=== PATIENT | male | born 1975 | race Caucasian/White ===

== ENCOUNTER 2025-04-15 20:59 | Outpatient (OUT) | payer OTHER, SELFPAY | END 2025-04-15 21:00 | disposition home or self-care (01) | LOC: SLEEP 20:59 | PROVIDERS: PCP Family Medicine; Visit Provider Family Medicine | DX: G47.33 Obstructive sleep apnea (adult) (pediatric) (principal) | CPT/HCPCS: 95810 ==

== ENCOUNTER 2025-04-28 20:58 | Outpatient (OUT) | payer OTHER, SELFPAY ==
--- OUTSIDE RECORDS SUMMARY | 2024-09-13 11:00 | XMS_ITS | Encounter Summary ---
Author Name [facility] [place] [facility] Address [address] [place] [address] Care Team Providers Care Boiler House Supervisor Name Role Phone JUAN MIGUEL AJ Primary Care Provider Unavailabl e Insurance Providers: All historical and current Section Date Range: From patient's date of to the date document was created. This section includes the names of all active insurance providers for the patient. Insurance Provider Type of Coverage Plan Name Start of Policy Coverage End of Policy Coverage Group Number Member ID Insurance Provider's Telephone Number Policy Haney's Name Patient's Relationship to Policy Haney MONICA PREFERRED PROVIDER ORGANIZAT ION (PPO) [employer] Jun 27, 2018 [id number] EVA PELAEZ PATIENT [employer] ([id number]) PRESCRIPT ION ENVOY 2017 ENVOYRX [phone] EVA PELAEZ PATIENT [facility] PREFERRED PROVIDER ORGANIZAT ION (PPO) [employer]ER [facility] Nov 27, 2023 [id number] EVA PELAEZ PATIENT Selected Encounter This section includes the information on record at [place] for the Encounter. Date/Time Encounter Type Encounter Description Reason Provider Source Sep 13, 2024 03:00 PM OFFICE O/P EST MOD 30 MIN PRIMARY CARE/MEDICINE ICD-10-CM G43.E09 Chronic migraine with aura, not ntrct, without stat migr JUAN MIGUEL AJ IHE Encounter Template Text not used by [facility] Assessments - Encounter Diagnoses This section includes the primary and secondary diagnoses documented for the Encounter. Date/Time Primary/Secondary Diagnosis Diagnosis Name Provider Source Oct 06, 2024 01:02 PM PRIMARY Chronic migraine with aura, not ntrct, without stat migr [facility] Oct 06, 2024 01:02 PM SECONDARY Hyperlipidemia, unspecified CHRISSIE [facility] Oct 06, 2024 01:02 PM SECONDARY Post-traumatic stress disorder, unspecified DE EBER,JUAN MIGUEL [facility] Lab Results: +/- 30 days of the encounter This section includes the Chemistry and Hematology Lab Results on record with [facility] for the patient. Radiology Reports and Pathology Reports are provided separately, in subsequent sections. Lab Results This section contains the Chemistry/Hematology Results that were resulted 30 days before or 30 daysafter the date of the Encounter. Date/Time Source Result Type Result - Unit Interpretation Reference Range Specimen Type Comment Sep 06, 2024 10:45 AM [facility] PROSTATE SPECIFIC ANTIGEN SERUM Specimen Type : SERUM No comment entered. Ordering Provider: JUAN MIGUEL AJ Report Released Date/Time: Aug 21, 2024 09:13 PM Reporting Lab: [address] [id number] Performing Lab: [address] [phone] PROSTATE SPECIFIC ANTIGEN 1.17 ng/mL <4. 00 Sep 06, 2024 10:45 AM [facility] LIPID PROFILE PLASMA Specimen Type: PLASMA Comment: DLDLREF RANGE: NEAR OR ABOVE OPTIMAL: 100-129 mg/dL BORDERLINE DLDLHIGH: 130-159 mg/dL HIGH: 160-189 mg/dL VERY HIGH: >=190 TRIG REF RANGE: BORDERLINE HIGH: 150-199 mg/dL HIGH: 200-499 mg/dL TRIG VERY HIGH: >=500 mg/dL CREA eGFR was calculated using the CKD-EPI 2020 equation. CHOL REF RANGE: BORDERLINE HIGH: 200-239 mg/dL HIGH: >=240 mg/dL Ordering Provider: JUAN MIGUEL AJ Report Released Date/Time: Aug 21, 2024 09:13 PM Reporting Lab: [address] [address] Performing Lab: [address] [address] CHOLESTEROL 233 mg/dL H <199 LDL CHOLESTEROL 169 mg/dL H <99 HDL CHOLESTEROL 54 mg/dL L >60 TRIGLYCERIDE 98 mg/dL <149 Sep 06, 2024 10:45 AM [facility] COMPREHENSIVE METABOLIC PANEL PLASMA S pecimen Type: PLASMA Comment: DLDLREF RANGE: NEAR OR ABOVE OPTIMAL: 100-129 mg/dL BORDERLINE DLDLHIGH: 130-159 mg/dL HIGH: 160-189 mg/dL VERY HIGH: >=190 TRIG REF RANGE: BORDERLINE HIGH: 150-199 mg/dL HIGH: 200-499 mg/dL TRIG VERY HIGH: >=500 mg/dL CREA eGFR was calculated using the CKD-EPI 2020 equation. CHOL REF RANGE: BORDERLINE HIGH: 200-239 mg/dL HIGH: >=240 mg/dL Ordering Provider: JUAN MIGUEL AJ Report Released Date/Time: Aug 21, 2024 09:13 PM Reporting Lab: [address] [address] Performing Lab: [address] [address] ALBUMIN 4.7 g/dL 3.5-5.2 ALKALINE PHOSPHATASE 54 U/L 40-150 ALT/SGPT 50 U/L <55 AST/SGOT 36 U/L H 5-34 BUN 8 mg/dL L 8.9-20.6 CALCIUM 9.7 mg/dL 8.4-10.2 CREATININE 1.1 mg/dL 0.72-1.25 CO2 23 mmol/L 22-29 GLUCOSE 109 mg/dL H 74-100 PROTEIN, TOTAL 7.3 g/dL 6.4-8.3 SODIUM 140 mmol/L 136-145 CHLORIDE 109 mmol/L H 98-107 BILIRUBIN, TOTAL 0.5 mg/dL 0.2-1.2 POTASSIUM 4.7 mmol/L 3.5-5.1 ANION GAP 13.0 mmol/L 10-20 EGFR (CALCULATED) 82.0 mL/min Sep 06, 2024 10:45 AM [facility] CBC BLOOD Specimen Type: BLOOD No comment entered. Ordering Provider: JUAN MIGUEL AJ Report Released Date/Time: Aug 21, 2024 09:13 PM Reporting Lab: [address] [address] Performing Lab: [address] [phone] WBC COUNT 6.7 10*3/uL 3.6-11.0 RBC COUNT 5.13 10*6/uL 4.47-5.83 HGB 15.1 g/dL 13.6-17.4 HCT 45.7 40.0-51.0 MCV 89.1 fL 80.0-96.0 MCH 29.4 pg 27.0-31.0 MCHC 33.0 g/dL 31.5-36.5 PLT 261 10*3/uL 150-400 LYMPHS % 37.3 21.0-51.0 MONOCYTES % 7.6 4.0-8.0 NUCLEATED RBC/100WBC 0.3 /100{WBCs} RDW 13.7 11.2-15.8 NEUTROPHIL % 53.4 L 54.0-78.0 EOSINOPHIL % 0.9 0.0-3.0 BASOPHIL % 0.8 0.0-3.0 ABSOLUTE LYMPHOCYTE COUNT 2.5 10*3/uL 0. 8-5.0 ABSOLUTE NEUTROPHIL COUNT 3.6 10*3/uL 1. 9-8.6 ABSOLUTE BASOPHIL COUNT 0.1 10*3/uL 0.0- 0.3 ABSOLUTE MONOCYTE COUNT 0.5 10*3/uL 0.1- 0.9 ABSOLUTE EOSINOPHIL COUNT 0.1 10*3/uL 0. 0-0.3 MPV 8.7 fL 7.4-11.4 Sep 06, 2024 10:45 AM [facility] MAGNESIUM PLASMA Specimen Type: PLASMA Comment: DLDLREF RANGE: NEAR OR ABOVE OPTIMAL: 100-129 mg/dL BORDERLINE DLDLHIGH: 130-159 mg/dL HIGH: 160-189 mg/dL VERY HIGH: >=190 TRIG REF RANGE: BORDERLINE HIGH: 150-199 mg/dL HIGH: 200-499 mg/dL TRIG VERY HIGH: >=500 mg/dL CREA eGFR was calculated using the CKD-EPI 2020 equation. CHOL REF RANGE: BORDERLINE HIGH: 200-239 mg/dL HIGH: >=240 mg/dL Ordering Provider: JUAN MIGUEL AJ Report Released Date/Time: Aug 21, 2024 09:13 PM Reporting Lab: [address] [address] Performing Lab: [place] [phone] MAGNESIUM 2.2 mg/dL 1.6-2.6 Sep 06, 2024 10:45 AM [facility] URINALYSIS URINE Specimen Type: URINE No comment entered. Ordering Provider: JUAN MIGUEL AJ Report Released Date/Time: Aug 21, 2024 09:13 PM Reporting Lab: [place] [phone] Performing Lab: [place] [phone] SPECIFIC GRAVITY 1.004 L 1.016-1.022 URINE GLUCOSE Negative mg/dL Negative URINE PROTEIN Negative mg/dL Negative URINE PH 7.0 5.0-8.0 NITRITE, URINE Negative Negative ESTERASE(WBC) Negative Negative URINE CLARITY Clear Clear URINE BILIRUBIN Negative mg/dL <=0.4 URINE BLOOD Negative mg/dL <0.05 UROBILINOGEN Negative mg/dL <=1 URINE KETONES Negative mg/dL <=9 URINE COLOR Colorless [none] Sep 06, 2024 10:45 AM [facility] VITAMIN D (TOTAL) SERUM Specimen Type : SERUM No comment entered. Ordering Provider: JUAN MIGUEL AJ Report Released Date/Time: Aug 21, 2024 09:13 PM Reporting Lab: [address] [phone] Performing Lab: [address] [phone] VITAMIN D (TOTAL) 44.00 ng/mL 30.00-75.0 0 Sep 06, 2024 10:45 AM [facility] TSH PLASMA Specimen Type: PLASMA Comment: DLDLREF RANGE: NEAR OR ABOVE OPTIMAL: 100-129 mg/dL BORDERLINE DLDLHIGH: 130-159 mg/dL HIGH: 160-189 mg/dL VERY HIGH: >=190 TRIG REF RANGE: BORDERLINE HIGH: 150-199 mg/dL HIGH: 200-499 mg/dL TRIG VERY HIGH: >=500 mg/dL CREA eGFR was calculated using the CKD-EPI 2020 equation. CHOL REF RANGE: BORDERLINE HIGH: 200-239 mg/dL HIGH: >=240 mg/dL Ordering Provider: JUAN MIGUEL JA Report Released Date/Time: Aug 21, 2024 09:13 PM Reporting Lab: [place] [address] [facility] [address] Performing Lab: [facility] [address] [facility] [address] TSH 1.970 u[IU]/mL 0.360-4.500 Social History: Smoking Status (Most current) and Tobacco Use (All prior to encounter date) This section includes the most current, and the historical, smoking and tobacco- related health factors from the [place] facility where the Encounter took place. Current Smoking Status This section includes the most current smoking, or tobacco-related health factor, from the [place] facility where the Encounter took place. Date/Time Current Smoking Status Comment Facil ity Sep 13, 2024 03:00 PM [facility]-TOBACCO FORMER USER [facility] Tobacco Use History This section includes a history of the smoking, or tobacco-related health factors, that were collected on or before the date of the Encounter. The data comes from the [place] facility where the Encounter took place. 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 [facility] Jul 28, 2022 02:00 PM VA-TOBACCO USE MED NO [facility] Jul 28, 2022 02:00 PM VA-TOBACCO USER SOME DAYS [facility] Jul 02, 2021 01:00 PM VA-TOBACCO DOESNT USE WI 30 MIN WAKEUP [facility] Jul 02, 2021 01:00 PM VA-TOBACCO USE 30 YEARS OR MORE [facility] Jul 02, 2021 01:00 PM VA-TOBACCO USE ADVICE [facility] Jul 02, 2021 01:00 PM 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 Date/Time Encounter Note(s) Provider Source Sep 13, 2024 02:54 PM INTERNAL MEDICINE OUTPATIENT NOTE: LOCAL TITLE: PRIMARY CARE OUTPATIENT NOTE (T) STANDARD TITLE: INTERNAL MEDICINE OUTPATIENT NOTE DATE OF NOTE: SEP 13, 2024@14:54 ENTRY DATE: SEP 13, 2024@14:54:37 AUTHOR: JUAN MIGUEL AJ COSIGNER: URGENCY: STATUS: COMPLETED In-person Note 48yo Reason for Visit: HERE FOR SCHEDULED APPOINTMENT TO GO OVER HIS LABS AND TO DISCUSS HIS MIGRAINES - WILL GET ABOUT 2 A MONTH- AND HIS HYPOTHRYOIDISM REVIEW OF SYSTEMS: GI: DENIES ABDOMINAL PAIN ,GERD, CONSTIPATION,DIARRHEA ,RECTAL BLEEDING : DENIES DYSURIA OR HEMATURIA CARDIAC; DENIES CHEST PAIN,PALPATATIONS ,ORTHOPNEA OR PEDAL EDEMA RESPIRATORY:DENIES SOB- CHRONIC COUGH -OR WHEEZING NEURO: DENIES HEADACHE, PARESTHESIA, NEUROPATHY,VISUAL OR HEARING PROBLEMS HABITS; TOBACCO;QUIT SMOKELESS TOBACCO 3 YEARS AGO ETOH; 8 BEERS - 4 DAYS A WEEK OTHER SUBSTANCES NEG PATIENT ALLERGIES DETAILED ALLERGIES/ADVERSE REACTIONS No Known Allergies AMRS - MEDS (REC SUCCINCT) Active and Recently Inpatient, Outpatient and Clinic Medications (including Supplies): Active Outpatient Medications Status ======= 1) LEVOTHYROXINE NA (SYNTHROID) 50MCG TAB TAKE ONE ACTIVE TABLET BY MOUTH EVERY MORNING, ON AN EMPTY STOMACH 30-60 MINUTES BEFORE BREAKFAST 2) MOMETASONE 200MCG/ACTUAT 120D ORAL INHL INHALE 1 PUFF ACTIVE BY MOUTH EVERY DAY FOR ASTHMA (RINSE MOUTH AFTER USE:NEW INHALER MUST BE PRIMED BEFORE USE OR IF NOT USED FOR 5 DAYS) 3) SUMATRIPTAN SUCCINATE 100MG TAB TAKE ONE TABLET BY ACTIVE MOUTH ONE TIME NEEDED FOR MIGRAINE HEADACHE MAY REPEAT AFTER 2 HOURS (NO MORE THAN 200MG IN 24 HOURS) Inactive Outpatient Medications Status ======= 1) FLUTICASONE PROP 50MCG 120D NASAL INHL USE 2 SPRAYS IN EACH NOSTRIL EVERY DAY FOR ALLERGIC RHINITIS 2) LORATADINE 10MG TAB TAKE ONE TABLET BY MOUTH EVERY DAY FOR ALLERGIC RHINITIS Active Non-VA Medications Status ======= 1) Non-VA ESSENTIAL FATTY ACIDS CAP 1000MG MOUTH EVERY ACTIVE DAY 2) Non-VA TESTOSTERONE BOOSTER CAP/TAB 3 CAPS MOUTH ACTIVE TWICE A DAY 7 Total Medications PHYSICAL EXAM: Vital Signs: T: 98.4 F [36.9 C] (09/13/2024 14:42) P: 83 (09/13/2024 14:42) R: 20 (09/13/2024 14:42) BP: 126/81 (09/13/2024 14:42) Pain: 6 (09/13/2024 14:51) Height: 73 in [185.4 cm] (11/30/2023 12:39) Weight: 270 lb [122.47 kg] (09/13/2024 14:42) Pulse Ox: 97% (09/13/2024 14:42) GENERAL: ALERT- ORIENTED X 4- NO DISTRESS LABS: REVIEWED WITH THE PATIENT: GLUCOSE 109- CHOL 233- WITH LDL OF 169 - REST OK HEAD, EARS ,EYES,NOSE AND THROAT- NORMOCEPHALIC ,LETICIA,EOMI, ENT NEG NECK: SUPPLE WITHOUT MASSES OR BRUITS CHEST/LUNG: CHEST SYMETRICAL- LUNGS CLEAR CARDIOVASCULAR : HEART RRR WITHOUT MURMUR GASTROINTESTINAL: ABDOMEN SOFT WITHOUT MASSES OR BRUITS EXTREMITIES; NO EDEMA NEURO: CN II-XII GROSSLY INTACT - NO TREMORS OR ABNORMAL MOVEMENTS ASSESSMENT/PLAN: HYPOTHYROIDISM MIGRAINES ETOH EXCESS - ADVISED TO CURTAIL ETOH - HE DECLINED HELP HYPERLIPIDEMIA - DECLINED STATINS FOR NOW HEALTH MAINTENANCE/CLINICAL REMINDERS: Clinical Reminders Activity Influenza Immunization: Deferral / Refusal The patient declines to receive the recommended dose of seasonal influenza vaccine. Immunization: INFLUENZA, UNSPECIFIED FORMULATION Refusal Reason: PATIENT DECISION Patient refuses all immunization(s) in the FLU group Date Documented: 09/13/24 15:39 Clinical Reminders Activity Follow-up Pos Alcohol : Patient's AUDIT-C score was greater than or equal to 5; brief alcohol intervention is indicated. Shared concern that the patient may be drinking at unhealthy levels known to increase his/her risk of alcohol related health problems. Specifically the following were reviewed: High blood pressure, heart disease, liver disease, depression The patient was advised/informed to drink within safe limits, which are no more than 2 drinks per day on average and no more than 4 drinks on any one day AND no more than 14 drinks per week. Will discuss again at next visit. The patient declines referral for alcohol use assessment or treatment at this time. Plan: rescreen annually. MEDICATION RECONCILIATION Medication Reconciliation report reviewed and discussed with patient/caregiver. VA prescription medications, non-VA prescription medications, OTC and herbal medications reviewed: Patient/caregiver verifies that the list is complete and accurate and voices understanding. Patient/caregiver in possession of printed medication list. FOLLOW-UP: RTC IN 6 MONTHS WITH LABS I am the Attending Physician. TOTAL TIME SPENT: Spent 30 minutes in care of this patient today including review of records, exam, and placing orders. /jennifer/ JUAN MIGUEL JA PHYSICIAN Signed: 09/13/2024 15:41 JUAN MIGUEL AJ [facility] Sep 13, 2024 02:44 PM PRIMARY CARE NURSI TOI NOTE: LOCAL TITLE: OUTPATIENT NURSING INTAKE NOTE (T) STANDARD TITLE: PRIMARY CARE NURSING NOTE DATE OF NOTE: SEP 13, 2024@14:44 ENTRY DATE: SEP 13, 2024@14:44:24 AUTHOR: AZIZA MALDONADO COSIGNER: URGENCY: STATUS: COMPLETED Hemoglobin A1C Results: No Hemoglobin A1C Results Review Allergies Allergies reviewed and updated per protocol. ALLERGIES/ADVERSE REACTIONS No Known Allergies MEDICATION LIST REVIEW REPORT OTC/Herbal was documented at this visit. 1. Has the patient been feeling sad or distressed? No 2. Has the patient been having personal or family problems? No 3. Has the patient been experiencing worry and/or stress? No 4. Has the patient been having problems with drugs and/or alcohol? No 5. [place] [facility] pocket card was provided to patient. No/patient declined Whole Health MAP ('s [place], [employer] and [employer]) What matters most to you? Comment: FAMILY Clinical Reminders Activity Advance Directive Education Screen: Patient received information regarding Advance Directives: No - Patient declined information at this time. WILL GET COPY Alcohol Use Screen (AUDIT-C): Alcohol Screen: SCREEN FOR ALCOHOL (AUDIT-C) An alcohol screening test (AUDIT-C) was positive (score=11). 1. How often did you have a drink containing alcohol in the past year? Consider a drink to be a 12 ounce can or bottle of regular beer, 8 ounces of malt liquor, a 5 ounce glass of table wine, or a 1.5 ounce shot of liquor (like scotch, gin, or vodka). Four or more times a week 2. How many drinks containing alcohol did you have on a typical day when you were drinking in the past year? Seven to nine drinks 3. How often did you have six or more drinks on one occasion in the past year? Daily or almost daily Licensed Independent Provider notified of positive screen and need for follow-up. Name of provider notified: Joy BMI Screening: At this visit, the health risks of obesity were reviewed and discussed with the patient, and the benefits of a weight management treatment program, such as [facility] was discussed and offered to the patient. Patient declines referral. After discussing the health risks of obesity and offering a referral to [facility] or another weight loss program outside the [facility], the patient DECLINES REFERRAL to [facility] or other weight loss program at this time. COVID-19 Immunization: Refused Pfizer Monovalent COVID-19 vaccine Immunization: COVID-19 (PFIZER), MRNA, LNP-S, PF, FAVIOLA-SUCROSE, 30 MCG/0.3 ML (AGES 12+ YEARS) Refusal Reason: PATIENT DECISION Patient refuses all immunization(s) in the COVID-19 group Comment: don't want it Date Documented: 09/13/24 14:48 Depression Screening: Perform PHQ-2 A PHQ-2 screen was performed. The score was 0 which is a negative screen for depression. Over the past two weeks, how often have you been bothered by the following problems? 1. Little interest or pleasure in doing things Not at all 2. Feeling down, depressed, or hopeless Not at all Influenza Immunization: Deferral / Refusal The patient declines to receive the recommended dose of seasonal influenza vaccine. Immunization: INFLUENZA, UNSPECIFIED FORMULATION Refusal Reason: PATIENT DECISION Patient refuses all immunization(s) in the FLU group Date Documented: 09/13/24 14:49 Pain, Brief Evaluation: Type of pain: Ongoing Location: Neck rt shoulders into scapula, rt ankle Intensity: Currently: 6 Usually: 6 Description of Pain: Aching Sharp Evaluation: Pain will be evaluated by provider today. Notified via Verbal Communication. Patient Education Documentation: LEARNING NEEDS ASSESSMENT: The patient/family/significant other reports no changes in learning needs. Pneumococcal Conjugate Vaccine (PCV15/PCV20): Refuses PCV vaccine Immunization: PNEUMOCOCCAL CONJUGATE, UNSPECIFIED FORMULATION Refusal Reason: PATIENT DECISION Patient refuses all immunization(s) in the PneumoPCV group Date Documented: 09/13/24 14:52 Suicide Screen: C-SSRS Screening [place] Suicide Severity Rating Scale (C-SSRS) screener 1. Over the past month, have you wished you were or wished you could go to sleep and not wake up? No 2. Over the past month, have you had any actual thoughts of killing yourself? No 3. Over the past month, have you been thinking about how you might do this? Response not required due to responses to other questions. 4. Over the past month, have you had these thoughts and had some intention of acting on them? Response not required due to responses to other questions. 5. Over the past month, have you started to work out or worked out the details of how to kill yourself? Response not required due to responses to other questions. 6. If yes, at any time in the past month did you intend to carry out this plan? Response not required due to responses to other questions. 7. In your lifetime, have you ever done anything, started to do anything, or prepared to do anything to end your life (for example, collected pills, obtained a gun, gave away valuables, went to the roof but didn't jump)? No 8. If YES, was this within the past 3 months? Response not required due to responses to other questions. Tobacco Use Screening: The patient is a former tobacco user. The patient quit one to less than 5 years ago. /jennifer/ AZIZA MALDONADO LICENSED PRACTICAL NURSE Signed: 09/13/2024 14:53 AZIZA MALDONADO [facility]
--- OUTSIDE RECORDS SUMMARY | 2025-04-16 08:48 | XMS_ITS | Encounter Summary ---
Author Name [facility] [place] [facility] Address [address] [place] [address] Care Team Providers Care Automotive Service Management Teacher Name Role Phone JUAN MIGUEL AJ Primary [...] [employer] Jun 27, 2018 [id number] EVA PELAEZ PATIENT [employer] ([id number]) PRESCRIPT ION ENVOY 2017 ENVOYRX [id number] [phone] EVA PELAEZ PATIENT [facility] PREFERRED PROVIDER ORGANIZAT ION (PPO) [employer] MECHANIC APPRENTICE [facility] Nov 27, 2023 [id number] [phone] EVA PELAEZ PATIENT Selected Encounter This section includes the information on record at [place] for the Encounter. Date/Time Encounter Type Encounter Description Reason Provider Source April 16, 2025 12:48 PM Outpatient Encounter PRIMARY CARE/MEDICINE KHUSHBU BELLAMY IHE Encounter Template Text not used by [place] Plan of Treatment: Future Appointments (+ 6 months) and Future Tests (+/- 45 days) The Plan of Treatment section includes future care activities for the [facility] [place] [facility] This section includes future appointments and future orders which are active, pending or scheduled. Future Appointments This section includes appointments that were scheduled to occur 6 months from the date of the Encounter, up to a maximum of 20 appointments. The data comes from all [facility] facilities. Appointment Date/Time Appointment Type Appointme nt Facility Name Apr 28, 2025 08:00 AM AMBULATORY - NONE [facility] May 20, 2025 10:00 AM AMBULATORY - NONE [facility] Encounter Notes: All associated encounter notes This section contains the clinical notes associated to the Encounter. Date/Time Encounter Note(s) Provider Source April 16, 2025 12:48 PM PRIMARY CARE [employer] MESSAGING: LOCAL TITLE: PRIMARY CARE SECURE MESSAGING STANDARD TITLE: PRIMARY CARE SECURE MESSAGING DATE OF NOTE: APRIL 16, 2025@12:48 ENTRY DATE: APRIL 16, 2025@12:48:57 AUTHOR: KHUSHBU BELLAMY EXP COSIGNER: URGENCY: STATUS: COMPLETED PRIMARY CARE SECURE MESSAGING Has ADDENDA ------Original Message Sent: 04/16/2025 07:59 AM ET From: EVA LEACH To: [facility] [address] Subject: Test:Sleep study Good morning. I completed my initial sleep study last night and wondering who the results will go to? I understand the results may take a week to receive, but wanted to keep things going forward. With me transferring care to a different provider there, and I haven't been seen for the initial assessment as of yet being a new patient. I want to ensure that the results and progress doesn't get lost in the transition. Or get delayed due to the transition. Please let me know how and who it is appropriate to direct these questions. Thank you ------Original Message Sent: 04/16/2025 09:46 AM ET From: KHUSHBU BELLAMY To: EVA LEACH Subject: Test:Sleep study Good Morning, Were you able to complete the sleep study at [facility]? ------Original Message Sent: 04/16/2025 12:26 PM ET From: EVA LEACH To: [facility] 1 [facility]OW Subject: Test:Sleep study I completed the sleep study at the [facility], that is correct. Please refer to my initial email regarding questions about the details. ------Original Message Sent: 04/16/2025 12:48 PM ET From: KHUSHBU BELLAMY To: EVA LEACH Subject: Test:Sleep study I reached out to [facility] inquiring if they received the results. [facility] encouraged the clinic to call back on Monday for possible results. Sometimes the results are back right away and sometimes up to the week that you spoke of. [facility] reports that once results and recommendations are received, the PCP is responsible for consulting appropriate equipment. In that case, Dr. Burns will be responsible until you establish care with a new provider. I hope this answers your questions . [facility] contact information is [phone] ext. [phone] if needed. Khushbu IRAHETA /[email or web address]/ KHUSHBU BELLAMY REGISTERED NURSE Signed: 04/16/2025 12:48 04/28/2025 ADDENDUM STATUS: COMPLETED Records RCVD- FWD to [facility] Sleep and to Dr. Burns for review. /jennifer/ KHUSHBU BELLAMY REGISTERED NURSE Signed: 04/28/2025 16:07 Receipt Acknowledged By: * AWAITING SIGNATURE * JUAN MIGUEL AJ TIFFANY L SANDUSKY OC
--- OUTSIDE RECORDS SUMMARY | 2025-04-28 20:59 | XMS_ITS | Continuity of Care Document ---
Author Name [facility] Organization [facility] Care Team Providers Care Fruit Tester Name Role Phone [facility] Unavailable Unavailable Problems Combined list of problems from Department of Defense and Veterans Affairs facilities. It does not include entries that were removed or entered in error. Problem Status Onset Date Problem Type Date of Resolution Comments Source SINUS TARSI SYNDROME Active Condition DoD ARTHROPATHY SHOULDER REGION RIGHT Active Condition DoD ARTHROPATHY ANKLE / FOOT RIGHT Active Condition DoD Other Physical Therapy Active Condition DoD visit for: refer patient without exam or treatment Inactive Condition DoD ANKLE SPRAIN RIGHT Inactive Condition Do D SHOULDER SPRAIN ROTATOR CUFF (CAPSULE) RIGHT Inactive Condition DoD CONTUSION WITH INTACT SKIN SURFACE - RIGHT DELTOID REGION Inactive Condition DoD ANKLE SPRAIN CALCANEOFIBULAR LIGAMENT RIGHT Inactive Condition DoD visit for: screening exam depression Inactive Condition DoD visit for: occupational health / fitness exam Active Condition DoD visit for: routine eye exam Inactive Condition DoD visit for: services physical Active Condition DoD visit for: ears / hearing exam Active Condition [facility] Patient Education - Injury Prevention Active Condition [facility] ASSESSMENT OF PATIENT CONDITION WORK STATUS Inactive Condition [facility] Vaccines Prophylactic Need Active Condition [facility] visit for: issue medical certificate Inactive Condition DoD Asthma Active Condition [facility] Exposure to Potentially Hazardous Substance ([id number][facility] Active Condition [facility] Family History of other Condition Active Condition Sep 07, 2007 Entered By: LUBA LOCKWOOD Comment: mother is breast cancer survivor. [facility] Hammer toe Active Condition [facility] Headache * (ICD-9-CM 784.0) Active Condition [facility] Hyperlipidemia Active Condition [facility] Migraine Active Condition [facility] Osteoarthritis of knee Active Condition [facility] Partial thickness rotator cuff tear Active Condition [facility] Post-traumatic stress disorder Active Condition [facility] Seasonal allergic rhinitis Active Condition [facility] Diagnosis: ICD-10-CM G43.E09 Chronic migraine with aura, not ntrct, without stat migr Active Diagnosis [facility] Diagnosis: ICD-10-CM J45.909 Unspecified asthma, uncomplicated Active Diagnosis [facility] Medications Combined list of outpatient medications from Department of Defense and Veterans Affairs facilities.Medications provided include 1) outpatient medications from the last 15 months, and 2) patient-reported medications. Medication Details Route Status Patient Instructions Prescription Expires Prescription Number Last Dispense Date Ordering Provider Order Date Order Qty Source ALBUTEROL 90MCG/ACTUA T (CFC-F) INHL,ORAL,8 .5GM DOSE COUNTER INHALE 1 OR 2 PUFFS BY MOUTH FOUR TIMES A DAY NEEDED USE BEFORE EXERCISE RESPIR ATORY (INHAL ATION) 04/19/2024 [id number] DORI AJ 2023 1 [facility] FLONASE-OTC (BRAND) 50 MCG SHANNAN SPSN [9.9] USE 2 SPRAYS IN EACH NOSTRIL EVERY DAY FOR ALLERGIC RHINITIS 08/09/2024 [id number] JUAN MIGUEL DAUGHERTY 2023 3 [facility] FLUTICASONE PROPIONATE 50MCG/SPRAY SOLN,NASAL, 16GM USE 2 SPRAYS IN EACH NOSTRIL EVERY DAY FOR ALLERGIC RHINITIS NASAL ACTIVE 10/14/2025 [id number] 4 DORI AJ 2023 3 [facility] FLUTICASONE PROPIONATE 50MCG/SPRAY SOLN,NASAL, 16GM USE 2 SPRAYS IN EACH NOSTRIL EVERY DAY FOR ALLERGIC RHINITIS NASAL DISCONT INUED 08/09/2024 [id number] 4 DORI AJ 2022 3 [facility] LEVOTHYROXI NE NA 50MCG TAB TAKE ONE TABLET BY MOUTH EVERY MORNING, ON AN EMPTY STOMACH 30-60 MINUTES BEFORE BREAKFAS T ORAL ACTIVE 09/12/2025 [id number] 5 DORI AJ 2023 90 [facility] LEVOTHYROXI NE NA 50MCG TAB (SYNTHROID) TAKE ONE TABLET BY MOUTH EVERY MORNING, ON AN EMPTY STOMACH 30-60 MINUTES BEFORE BREAKFAS T ORAL DISCONT INUED 09/11/2024 [id number] 4 DORI AJ 2022 90 [facility] Loratadine (Alavert ODT) Tablet 10 mg Oral TAKE ONE TABLET BY MOUTH EVERY DAY FOR ALLERGIC RHINITIS 08/09/2024 [id number] 4 JUAN MIGUEL DAUGHERTY 2023 90 [facility] LORATADINE 10MG TAB TAKE ONE TABLET BY MOUTH EVERY DAY FOR ALLERGIC RHINITIS ORAL ACTIVE 10/14/2025 [id number] 5 DORI AJ 2023 90 [facility] LORATADINE 10MG TAB TAKE ONE TABLET BY MOUTH EVERY DAY FOR ALLERGIC RHINITIS ORAL DISCONT INUED 08/09/2024 [id number] DORI AJ 2022 90 [facility] Mometasone Furoate 0.2mg/ACTUA T, Inhalation, HFA INHALE 1 PUFF BY MOUTH EVERY DAY FOR ASTHMA (RINSE MOUTH AFTER USE:NEW INHALER MUST BE PRIMED BEFORE USE OR IF NOT USED FOR 5 DAYS) 12/01/2024 [id number] 4 JUAN MIGUEL DAUGHERTY 2023 1 [facility] MOMETASONE FUROATE 200MCG/ACTU AT INHL,ORAL,1 20D,13GM INHALE 1 PUFF BY MOUTH EVERY DAY FOR ASTHMA (RINSE MOUTH AFTER USE:NEW INHALER MUST BE PRIMED BEFORE USE OR IF NOT USED FOR 5 DAYS) RESPIR ATORY (INHAL ATION) 12/01/2024 [id number] CHRISSIE DORI VELÁZQUEZ 2023 1 [facility] OMEGA-3-ACI D ETHYL ESTERS 1000MG CAP,ORAL TAKE 1 CAPSULE BY MOUTH EVERY DAY ORAL ACTIVE CHRISSIE DORI VELÁZQUEZ 2023 [facility] SUMAtriptan (U/D) 100 MG ORAL TAB TAKE ONE TABLET BY MOUTH ONE TIME NEEDED FOR MIGRAINE HEADACHE MAY REPEAT AFTER 2 HOURS (NO MORE THAN 200MG IN 24 HOURS) 03/21/2025 [id number] 4 JUAN MIGUEL DAUGHERTY 2023 9 [facility] SUMAtriptan (U/D) 100 MG ORAL TAB TAKE ONE TABLET BY MOUTH ONE TIME NEEDED FOR MIGRAINE HEADACHE MAY REPEAT AFTER 2 HOURS (NO MORE THAN 200MG IN 24 HOURS) Discont inued 02/25/2024 [id number] JUAN MIGUEL DAUGHERTY L 2023 9 [facility] SUMATRIPTAN SUCCINATE 100MG TAB TAKE ONE TABLET BY MOUTH ONE TIME NEEDED FOR MIGRAINE HEADACHE MAY REPEAT AFTER 2 HOURS (NO MORE THAN 200MG IN 24 HOURS) ORAL DISCONT INUED 02/25/2024 [id number] DORI AJ L 2022 9 [facility] SUMATRIPTAN SUCCINATE 100MG TAB TAKE ONE TABLET BY MOUTH ONE TIME NEEDED FOR MIGRAINE HEADACHE MAY REPEAT AFTER 2 HOURS (NO MORE THAN 200MG IN 24 HOURS) ORAL 03/21/2025 [id number] 4 DORI AJ L 2023 9 [facility] TESTOSTERON E BOOSTER CAP/TAB TAKE 3 CAPS BY MOUTH TWICE A DAY ORAL ACTIVE DORI AJ 2023 [facility] Allergies, Adverse Reactions, Alerts Combined list of allergies from Department of Defense and Veterans Affairs facilities. It does not include entries that were removed or entered in error. Substance Category Reaction Severity Reaction type Status Date Reported Comments Source No Known Allergies Drug allergy (disorder) active 07/18/2007 Don Brandoncker ASHLEY Immunizations Combined list of available immunizations from the Department of Defense and Veterans Affairs facilities. Immunization Series Date Given Administered By Site Reaction Lot Number CVX Code Drug Supervisor Plate Forming Status Comments Source DTP 1 2021 01 complet ed HISTORICA L INFORMATI ON - FROM OTHER REGISTRY, [facility] INFLUENZA, UNSPECIFIED FORMULATION 2020 88 complet ed [facility] INFLUENZA, INJECTABLE, QUADRIVALENT 2018 158 complet ed 02, Partner: [facility]. Administe red by: [facility] Clinician (NPI=Not Provided) . Partner 12 Lot#: [id number] 1 Mfr: SEQIRUS [facility] INFLUENZA (HISTORICAL) 2015 88 complet ed [facility] [place] [facility] PNEUMOCOCCAL POLYSACCHARID E [id number] 2015 33 complet ed [facility] PNEUMOCOCCAL, UNSPECIFIED FORMULATION 2015 109 complet ed [facility] TDAP 2015 115 complet ed [facility] INFLUENZA, SEASONAL, INJECTABLE 1 2014 141 complet ed HISTORICA L INFORMATI ON - FROM OTHER [facility] INFLUENZA (HISTORICAL) 2014 88 complet ed RE[facility]IV[facility] AT [facility] influenza virus vaccine, split virus (incl. purified surface antigen)-reti red CODE 1 2009 [id number] 15 [employer] (CSL) complet ed influenza virus vaccine, split virus (incl. purified surface antigen)- retired CODE DoD Novel Influenza-H1N 1-09, live virus for nasal administratio n 1 2009 [id number] [employer] (MED) complet ed Novel Influenza -[id number], live virus for nasal administr ation DoD influenza virus vaccine, split virus (incl. purified surface antigen)-reti red CODE 1 2008 [id number] 15 [employer] (CSL) complet ed influenza virus vaccine, split virus (incl. purified surface antigen)- retired CODE DoD influenza virus vaccine, split virus (incl. purified surface antigen)-reti red CODE 1 2006 [id number] 15 Unknown (UNK) complet ed influenza virus vaccine, split virus (incl. purified surface antigen)- retired CODE DoD anthrax vaccine 3 2006 [id number] [employer] (MIP) complet ed anthrax vaccine DoD anthrax vaccine 2 2006 [id number] [employer] (MIP) complet ed anthrax vaccine DoD anthrax vaccine 1 2006 [id number] [employer] (MIP) complet ed anthrax vaccine DoD influenza virus vaccine, split virus (incl. purified surface antigen)-reti red CODE 1 2005 [id number] Sanofi Pasteur ([facility]) complet ed influenza virus vaccine, split virus (incl. purified surface antigen)- retired CODE DoD vaccinia (smallpox) vaccine 1 2005 UNK 75 Unknown (UNK) comple t ed vaccinia (smallpox ) vaccine DoD anthrax vaccine 1 2005 NONE 24 (NON) complet ed anthrax vaccine DoD typhoid Vi capsular polysaccharid e vaccine 1 2005 [id number] Unknown (UNK) comple t ed typhoid Vi capsular polysacch aride vaccine DoD TD(ADULT) UNSPECIFIED FORMULATION 2005 139 complet ed [facility] influenza virus vaccine, unspecified formulation 1 2004 UNK 88 Unknown (UNK) comple t ed influenza virus vaccine, unspecifi ed formulati on DoD measles, mumps and rubella virus vaccine 0 2002 [id number] Merck (MSD) complet ed measles, mumps and rubella virus vaccine DoD typhoid vaccine, parenteral, other than acetone-kille d, dried 0 2002 [id number] Sanofi Pasteur ([facility]) complet ed typhoid vaccine, parentera l, other than acetone-k illed, dried DoD hepatitis B vaccine, adult dosage 3 2002 [id number] 43 Merck (MSD) complet ed hepatitis B vaccine, adult dosage DoD influenza virus vaccine, unspecified formulation 0 2002 [id number] Sanofi Pasteur ([facility]) complet ed influenza virus vaccine, unspecifi ed formulati on DoD tetanus and diphtheria toxoids, adsorbed, preservative free, for adult use (2 Lf of tetanus toxoid and 2 Lf of diphtheria toxoid) 0 2001 [id number] Sanofi Pasteur ([facility]) complet ed tetanus and diphtheri a toxoids, adsorbed, preservat ally free, for adult use (2 Lf of tetanus toxoid and 2 Lf of diphtheri a toxoid) DoD hepatitis B vaccine, adult dosage 2 2001 [id number] Merck (MSD) complet ed hepatitis B vaccine, adult dosage DoD meningococcal polysaccharid e vaccine (MPSV4) 0 2000 UNK 32 Unknown (UNK) comple t ed meningoco ccal polysacch aride vaccine (MPSV4) DoD yellow fever vaccine 0 2000 [id number] Sanofi Pasteur ([facility]) complet ed yellow fever vaccine DoD hepatitis B vaccine, adult dosage 1 2000 UNK 43 Unknown (UNK) comple t ed hepatitis B vaccine, adult dosage DoD hepatitis A vaccine, adult dosage 2 2000 UNK 52 Unknown (UNK) comple t ed hepatitis A vaccine, adult dosage DoD typhoid vaccine, parenteral, other than acetone-kille d, dried 0 2000 UNK 41 Unknown (UNK) comple t ed typhoid vaccine, parentera l, other than acetone-k illed, dried DoD hepatitis A vaccine, adult dosage 1 1999 UNK 52 Unknown (UNK) comple t ed hepatitis A vaccine, adult dosage DoD trivalent poliovirus vaccine, live, oral 0 1992 UNK 02 Unknown (UNK) comple t ed trivalent polioviru s vaccine, live, oral DoD measles and rubella virus vaccine 0 1992 UNK 04 Unknown (UNK) comple t ed measles and rubella virus vaccine DoD tetanus and diphtheria toxoids, adsorbed, preservative free, for adult use (2 Lf of tetanus toxoid and 2 Lf of diphtheria toxoid) 0 1992 UNK 09 Unknown (UNK) comple t ed tetanus and diphtheri a toxoids, adsorbed, preservat ally free, for adult use (2 Lf of tetanus toxoid and 2 Lf of diphtheri a toxoid) DoD adenovirus vaccine, unspecified formulation 0 1992 UNK 82 Unknown (UNK) comple t ed adenoviru s vaccine, unspecifi ed formulati on DoD influenza virus vaccine, unspecified formulation 0 1992 UNK 88 Unknown (UNK) comple t ed influenza virus vaccine, unspecifi ed formulati on DoD Results Combined list of recent chemistry, hematology and other laboratory results from Department of Defense and Veterans Affairs, ranging from 15 months to all on record, depending upon the facility. Order Name Results Value Reference Range Date Interpretation Specimen Comments Source PROSTATE SPECIFIC ANTIGEN PROSTATE SPECIFIC AG [MASS/VOLU ME] IN SERUM OR PLASMA 1.17 ng/mL <4.00 - 4.00 09/06 Specimen Type: SERUM No comment entered. Ordering Provider: JUAN MIGUEL AJ Report Released Date/Time: Aug 21, 2024 09:13 PM Reporting Lab: [facility] [id number] [facility] [id number] Performing Lab: [place] [phone] [facility] LIPID PROFILE CHOLESTERO L [MASS/VOLU ME] IN SERUM OR PLASMA 233 mg/dL <199 - 199 09/06 H Specimen Type: PLASMA Comment: DLDLREF RANGE: NEAR [...] Aug 21, 2024 09:13 PM Reporting Lab: [place] [phone] Performing Lab: [place] [phone] [facility] LIPID PROFILE CHOLESTERO L IN LDL [MASS/VOLU ME] IN SERUM OR PLASMA BY DIRECT ASSAY 169 mg/dL <99 - 99 09/06 H Specimen Type: PLASMA Comment: DLDLREF RANGE: NEAR [...] Aug 21, 2024 09:13 PM Reporting Lab: [place] [phone] Performing Lab: [place] [phone] [facility] LIPID PROFILE CHOLESTERO L IN HDL [MASS/VOLU ME] IN SERUM OR PLASMA 54 mg/dL 60 09/06 L Specimen Type: PLASMA Comment: DLDLREF RANGE: NEAR [...] Aug 21, 2024 09:13 PM Reporting Lab: [place] [phone] Performing Lab: [place] [id number] LIPID PROFILE TRIGLYCERI DE [MASS/VOLU ME] IN SERUM OR PLASMA 98 mg/dL <149 - 149 09/06 Specimen Type: PLASMA Comment: DLDLREF RANGE: NEAR [...] Aug 21, 2024 09:13 PM Reporting Lab: [place] [phone] Performing Lab: [place] [id number] [place] [address] COMPREHE NSIVE METABOLI C PANEL ALBUMIN [MASS/VOLU ME] IN SERUM OR PLASMA 4.7 g/dL 3.5 - 5.2 09/06 Specimen Type: PLASMA Comment: DLDLREF RANGE: NEAR [...] Aug 21, 2024 09:13 PM Reporting Lab: [place] [id number] Performing Lab: [place] [phone] [place] [address] COMPREHE NSIVE METABOLI C PANEL ALKALINE PHOSPHATAS E [ENZYMATIC ACTIVITY/V OLUME] IN SERUM OR PLASMA 54 U/L 40 - 150 09/06 Specimen Type: PLASMA Comment: DLDLREF RANGE: NEAR [...] Aug 21, 2024 09:13 PM Reporting Lab: [place] [phone] Performing Lab: [place] [id number] NSIVE METABOLI C PANEL ALANINE AMINOTRANS FERASE [ENZYMATIC ACTIVITY/V OLUME] IN SERUM OR PLASMA 50 U/L <55 - 55 09/06 Specimen Type: PLASMA Comment: DLDLREF RANGE: NEAR [...] Aug 21, 2024 09:13 PM Reporting Lab: [place] [phone] Performing Lab: [place] [phone] [facility] COMPREHE NSIVE METABOLI C PANEL ASPARTATE AMINOTRANS FERASE [ENZYMATIC ACTIVITY/V OLUME] IN SERUM OR PLASMA 36 U/L 5 - 34 09/06 H Specimen Type: PLASMA Comment: DLDLREF RANGE: NEAR [...] Aug 21, 2024 09:13 PM Reporting Lab: [place] [phone] Performing Lab: [place] [phone] [facility] COMPREHE NSIVE METABOLI C PANEL UREA NITROGEN [MASS/VOLU ME] IN SERUM OR PLASMA 8 mg/dL 8.9 - 20.6 09/06 L Specimen Type: PLASMA Comment: DLDLREF RANGE: NEAR [...] Aug 21, 2024 09:13 PM Reporting Lab: [place] [phone] Performing Lab: [place] [phone] [facility] COMPREHE NSIVE METABOLI C PANEL CALCIUM [MASS/VOLU ME] IN SERUM OR PLASMA 9.7 mg/dL 8.4 - 10.2 09/06 Specimen Type: PLASMA Comment: DLDLREF RANGE: NEAR [...] Aug 21, 2024 09:13 PM Reporting Lab: [place] [phone] Performing Lab: [place] [phone] [place] [address] COMPREHE NSIVE METABOLI C PANEL CREATININE [MASS/VOLU ME] IN SERUM OR PLASMA 1.1 mg/dL 0.72 - 1.25 09/06 Specimen Type: PLASMA Comment: DLDLREF RANGE: NEAR [...] Aug 21, 2024 09:13 PM Reporting Lab: [place] [phone] Performing Lab: [place] [phone] [facility] COMPREHE NSIVE METABOLI C PANEL CARBON DIOXIDE, TOTAL [MOLES/VOL UME] IN SERUM OR PLASMA 23 mmol/L 22 - 09/06 Specimen Type: PLASMA Comment: DLDLREF RANGE: NEAR [...] Aug 21, 2024 09:13 PM Reporting Lab: [place] [id number] Performing Lab: [address] COMPREHE NSIVE METABOLI C PANEL GLUCOSE [MASS/VOLU ME] IN SERUM OR PLASMA 109 mg/dL 74 - 100 09/06 H Specimen Type: PLASMA Comment: DLDLREF RANGE: NEAR [...] Aug 21, 2024 09:13 PM Reporting Lab: [place] [address] Performing Lab: [address] COMPREHE NSIVE METABOLI C PANEL PROTEIN [MASS/VOLU ME] IN SERUM OR PLASMA 7.3 g/dL 6.4 - 8.3 09/06 Specimen Type: PLASMA Comment: DLDLREF RANGE: NEAR [...] Aug 21, 2024 09:13 PM Reporting Lab: [place] [phone] Performing Lab: [place] [phone] [place] [address] COMPREHE NSIVE METABOLI C PANEL SODIUM [MOLES/VOL UME] IN SERUM OR PLASMA 140 mmol/L 136 - 145 09/06 Specimen Type: PLASMA Comment: DLDLREF RANGE: NEAR [...] Aug 21, 2024 09:13 PM Reporting Lab: [place] [phone] Performing Lab: [place] [phone] [place] [address] COMPREHE NSIVE METABOLI C PANEL CHLORIDE [MOLES/VOL UME] IN SERUM OR PLASMA 109 mmol/L 98 - 107 09/06 H Specimen Type: PLASMA Comment: DLDLREF RANGE: NEAR [...] Aug 21, 2024 09:13 PM Reporting Lab: [address] [phone] Performing Lab: [place] [phone] [place] [address] COMPREHE NSIVE METABOLI C PANEL BILIRUBIN. TOTAL [MASS/VOLU ME] IN SERUM OR PLASMA 0.5 mg/dL 0.2 - 1.2 09/06 Specimen Type: PLASMA Comment: DLDLREF RANGE: NEAR [...] Aug 21, 2024 09:13 PM Reporting Lab: [place] [address] Performing Lab: [address] COMPREHE NSIVE METABOLI C PANEL POTASSIUM [MOLES/VOL UME] IN SERUM OR PLASMA 4.7 mmol/L 3.5 - 5.1 09/06 Specimen Type: PLASMA Comment: DLDLREF RANGE: NEAR [...] Aug 21, 2024 09:13 PM Reporting Lab: [place] [phone] Performing Lab: [address] COMPREHE NSIVE METABOLI C PANEL ANION GAP IN SERUM OR PLASMA 13.0 mmol/L 09/06 Specimen Type: PLASMA Comment: DLDLREF RANGE: NEAR [...] Aug 21, 2024 09:13 PM Reporting Lab: [place] [phone] Performing Lab: [place] [phone] [facility] COMPREHE NSIVE METABOLI C PANEL GLOMERULAR FILTRATION RATE/1.73 SQ M.PREDICTE D [VOLUME RATE/AREA] IN SERUM, PLASMA OR BLOOD BY CREATININE -BASED FORMULA (CKD-EPI 2020) 82.0 mL/min 09/06 Specimen Type: PLASMA Comment: DLDLREF RANGE: NEAR [...] Aug 21, 2024 09:13 PM Reporting Lab: [place] [phone] Performing Lab: [place] [phone] [facility] CBC LEUKOCYTES [#/VOLUME] IN BLOOD BY AUTOMATED COUNT 6.7 10*3/uL 3.6 - 11.0 09/06 Specimen Type: BLOOD No comment entered. Ordering Provider: JUANM IGUEL AJ Report Released Date/Time: Aug 21, 2024 09:13 PM Reporting Lab: [address] [phone] Performing Lab: [place] [phone] [facility] CBC ERYTHROCYT ES [#/VOLUME] IN BLOOD BY AUTOMATED COUNT 5.13 10*6/uL 4.47 - 5.83 09/06 Specimen Type: BLOOD No comment entered. Ordering Provider: JUAN MIGUEL AJ Report Released Date/Time: Aug 21, 2024 09:13 PM Reporting Lab: [place] [phone] Performing Lab: [place] [phone] CBC HEMOGLOBIN [MASS/VOLU ME] IN BLOOD 15.1 g/dL 13.6 - 17.4 09/06 Specimen Type: BLOOD No comment entered. Ordering Provider: JUAN MIGUEL AJ Report Released Date/Time: Aug 21, 2024 09:13 PM Reporting Lab: [place] [phone] Performing Lab: [place] [phone] CBC HEMATOCRIT [VOLUME FRACTION] OF BLOOD BY AUTOMATED COUNT 45.7 40.0 - 51.0 09/06 Specimen Type: BLOOD No comment entered. Ordering Provider: JUAN MIGUEL AJ Report Released Date/Time: Aug 21, 2024 09:13 PM Reporting Lab: [place] [phone] Performing Lab: [place] [phone] CBC MCV [ENTITIC VOLUME] BY AUTOMATED COUNT 89.1 fL 80.0 - 96.0 09/06 Specimen Type: BLOOD No comment entered. Ordering Provider: JUAN MIGUEL AJ Report Released Date/Time: Aug 21, 2024 09:13 PM Reporting Lab: [place] [phone] Performing Lab: [place] [phone] CBC MCH [ENTITIC MASS] BY AUTOMATED COUNT 29.4 pg 27.0 - 31.0 09/06 Specimen Type: BLOOD No comment entered. Ordering Provider: JUAN MIGUEL AJ Report Released Date/Time: Aug 21, 2024 09:13 PM Reporting Lab: [place] [phone] Performing Lab: [address] [phone] [facility] CBC MCHC [MASS/VOLU ME] BY AUTOMATED COUNT 33.0 g/dL 31.5 - 36.5 09/06 Specimen Type: BLOOD No comment entered. Ordering Provider: JUAN MIGUEL AJ Report Released Date/Time: Aug 21, 2024 09:13 PM Reporting Lab: [place] [phone] Performing Lab: [place] [phone] [place] [address] CBC PLATELETS [#/VOLUME] IN BLOOD BY AUTOMATED COUNT 261 10*3/uL 150 - 400 09/06 Specimen Type: BLOOD No comment entered. Ordering Provider: JUAN MIGUEL AJ Report Released Date/Time: Aug 21, 2024 09:13 PM Reporting Lab: [place] [phone] Performing Lab: [place] [phone] [place] [address] CBC LYMPHOCYTE S/100 LEUKOCYTES IN BLOOD BY AUTOMATED COUNT 37.3 21.0 - 51.0 09/06 Specimen Type: BLOOD No comment entered. Ordering Provider: JUAN MIGUEL AJ Report Released Date/Time: Aug 21, 2024 09:13 PM Reporting Lab: [place] [phone] Performing Lab: [place] [phone] [place] [address] CBC MONOCYTES/ 100 LEUKOCYTES IN BLOOD BY AUTOMATED COUNT 7.6 4.0 - 8.0 09/06 Specimen Type: BLOOD No comment entered. Ordering Provider: JUAN MIGUEL AJ Report Released Date/Time: Aug 21, 2024 09:13 PM Reporting Lab: [address] [phone] Performing Lab: [place] [phone] CBC NUCLEATED ERYTHROCYT ES/100 LEUKOCYTES [RATIO] IN BLOOD BY MANUAL COUNT 0.3 /100{WBC s} 09/06 Specimen Type: BLOOD No comment entered. Ordering Provider: JUAN MIGUEL AJ Report Released Date/Time: Aug 21, 2024 09:13 PM Reporting Lab: [address] [phone] Performing Lab: [place] [phone] [facility] CBC ERYTHROCYT E DISTRIBUTI ON WIDTH [RATIO] BY AUTOMATED COUNT 13.7 11.2 - 15.8 09/06 Specimen Type: BLOOD No comment entered. Ordering Provider: JUAN MIGUEL AJ Report Released Date/Time: Aug 21, 2024 09:13 PM Reporting Lab: [place] [phone] Performing Lab: [place] [phone] [place] [address] CBC NEUTROPHIL S/100 LEUKOCYTES IN BLOOD BY AUTOMATED COUNT 53.4 54.0 - 78.0 09/06 L Specimen Type: BLOOD No comment entered. Ordering Provider: JUAN MIGUEL AJ Report Released Date/Time: Aug 21, 2024 09:13 PM Reporting Lab: [place] [phone] Performing Lab: [place] [phone] [place] [address] CBC EOSINOPHIL S/100 LEUKOCYTES IN BLOOD BY AUTOMATED COUNT 0.9 0.0 - 3.0 09/06 Specimen Type: BLOOD No comment entered. Ordering Provider: JUAN MIGUEL AJ Report Released Date/Time: Aug 21, 2024 09:13 PM Reporting Lab: [place] [phone] Performing Lab: [place] [id number] [place] [address] CBC BASOPHILS/ 100 LEUKOCYTES IN BLOOD BY AUTOMATED COUNT 0.8 0.0 - 3.0 09/06 Specimen Type: BLOOD No comment entered. Ordering Provider: JUAN MIGUEL AJ Report Released Date/Time: Aug 21, 2024 09:13 PM Reporting Lab: [place] [phone] Performing Lab: [place] [phone] [facility] CBC LYMPHOCYTE S [#/VOLUME] IN BLOOD BY AUTOMATED COUNT 2.5 10*3/uL 0.8 - 5.0 09/06 Specimen Type: BLOOD No comment entered. Ordering Provider: JUAN MIGUEL AJ Report Released Date/Time: Aug 21, 2024 09:13 PM Reporting Lab: [address] [phone] Performing Lab: [place] [id number] [facility] CBC NEUTROPHIL S [#/VOLUME] IN BLOOD 3.6 10*3/uL 1.9 - 8.6 09/06 Specimen Type: BLOOD No comment entered. Ordering Provider: JUAN MIGUEL AJ Report Released Date/Time: Aug 21, 2024 09:13 PM Reporting Lab: [address] [address] Performing Lab: [place] [phone] [place] [address] CBC BASOPHILS [#/VOLUME] IN BLOOD BY AUTOMATED COUNT 0.1 10*3/uL 0.0 - 0.3 09/06 Specimen Type: BLOOD No comment entered. Ordering Provider: JUAN MIGUEL AJ Report Released Date/Time: Aug 21, 2024 09:13 PM Reporting Lab: [place] [phone] Performing Lab: [place] [phone] [place] [address] CBC MONOCYTES [#/VOLUME] IN BLOOD BY AUTOMATED COUNT 0.5 10*3/uL 0.1 - 0.9 09/06 Specimen Type: BLOOD No comment entered. Ordering Provider: JUAN MIGUEL AJ Report Released Date/Time: Aug 21, 2024 09:13 PM Reporting Lab: [address] [phone] Performing Lab: [address] [phone] [facility] CBC EOSINOPHIL S [#/VOLUME] IN BLOOD BY AUTOMATED COUNT 0.1 10*3/uL 0.0 - 0.3 09/06 Specimen Type: BLOOD No comment entered. Ordering Provider: JUAN MIGUEL AJ Report Released Date/Time: Aug 21, 2024 09:13 PM Reporting Lab: [address] [phone] Performing Lab: [address] [phone] [facility] CBC PLATELET MEAN VOLUME [ENTITIC VOLUME] IN BLOOD BY AUTOMATED COUNT 8.7 fL 7.4 - 11.4 09/06 Specimen Type: BLOOD No comment entered. Ordering Provider: JUAN MIGUEL AJ Report Released Date/Time: Aug 21, 2024 09:13 PM Reporting Lab: [place] [phone] Performing Lab: [place] [phone] [place] [address] MAGNESIU M MAGNESIUM [MASS/VOLU ME] IN SERUM OR PLASMA 2.2 mg/dL 1.6 - 2.6 09/06 Specimen Type: PLASMA Comment: DLDLREF RANGE: NEAR [...] Aug 21, 2024 09:13 PM Reporting Lab: [place] [phone] Performing Lab: [place] [phone] URINALYS IS SPECIFIC GRAVITY OF URINE 1.004 1.016 - 1.022 09/06 L Specimen Type: URINE No comment entered. Ordering Provider: JUAN MIGUEL AJ Report Released Date/Time: Aug 21, 2024 09:13 PM Reporting Lab: [place] [phone] Performing Lab: [place] [phone] URINALYS IS GLUCOSE [MASS/VOLU ME] IN URINE BY TEST STRIP Negative mg/dL 09/06 Specimen Type: URINE No comment entered. Ordering Provider: JUAN MIGUEL AJ Report Released Date/Time: Aug 21, 2024 09:13 PM Reporting Lab: [place] [phone] Performing Lab: [address] [phone] [facility] URINALYS IS PROTEIN [MASS/VOLU ME] IN URINE BY TEST STRIP Negative mg/dL 09/06 Specimen Type: URINE No comment entered. Ordering Provider: JUAN MIGUEL AJ Report Released Date/Time: Aug 21, 2024 09:13 PM Reporting Lab: [address] [phone] Performing Lab: [place] [phone] [facility] URINALYS IS PH OF URINE BY TEST STRIP 7.0 5.0 - 8.0 09/06 Specimen Type: URINE No comment entered. Ordering Provider: JUAN MIGUEL AJ Report Released Date/Time: Aug 21, 2024 09:13 PM Reporting Lab: [address] [phone] Performing Lab: [place] [phone] [place] [address] URINALYS IS NITRITE [PRESENCE] IN URINE BY TEST STRIP Negative 09/06 Specimen Type: URINE No comment entered. Ordering Provider: JUAN MIGUEL AJ Report Released Date/Time: Aug 21, 2024 09:13 PM Reporting Lab: [address] [phone] Performing Lab: [place] [phone] [facility] URINALYS IS LEUKOCYTE ESTERASE [PRESENCE] IN URINE BY TEST STRIP Negative 09/06 Specimen Type: URINE No comment entered. Ordering Provider: JUAN MIGUEL AJ Report Released Date/Time: Aug 21, 2024 09:13 PM Reporting Lab: [address] [phone] Performing Lab: [address] [phone] [facility] URINALYS IS CLARITY OF URINE Clear 09/06 Specimen Type: URINE No comment entered. Ordering Provider: JUAN MIGUEL AJ Report Released Date/Time: Aug 21, 2024 09:13 PM Reporting Lab: [address] [phone] Performing Lab: [place] [phone] [facility] URINALYS IS BILIRUBIN. TOTAL [MASS/VOLU ME] IN URINE BY TEST STRIP Negative mg/dL - 0.4 09/06 Specimen Type: URINE No comment entered. Ordering Provider: JUAN MIGUEL AJ Report Released Date/Time: Aug 21, 2024 09:13 PM Reporting Lab: [place] [phone] Performing Lab: [place] [phone] URINALYS IS HEMOGLOBIN [PRESENCE] IN URINE BY TEST STRIP Negative mg/dL <0.05 - 0.05 09/06 Specimen Type: URINE No comment entered. Ordering Provider: JUAN MIGUEL AJ Report Released Date/Time: Aug 21, 2024 09:13 PM Reporting Lab: [place] [phone] Performing Lab: [place] [phone] URINALYS IS UROBILINOG EN [MASS/VOLU ME] IN URINE Negative mg/dL - 1 09/06 Specimen Type: URINE No comment entered. Ordering Provider: JUAN MIGUEL AJ Report Released Date/Time: Aug 21, 2024 09:13 PM Reporting Lab: [place] [phone] Performing Lab: [place] [phone] URINALYS IS KETONES [MASS/VOLU ME] IN URINE BY TEST STRIP Negative mg/dL - 9 09/06 Specimen Type: URINE No comment entered. Ordering Provider: JUAN MIGUEL AJ Report Released Date/Time: Aug 21, 2024 09:13 PM Reporting Lab: [place] [phone] Performing Lab: [address] URINALYS IS COLOR OF URINE Colorles s [none] 09/06 Specimen Type: URINE No comment entered. Ordering Provider: JUAN MIGUEL AJ Report Released Date/Time: Aug 21, 2024 09:13 PM Reporting Lab: [address] [phone] Performing Lab: [place] [phone] [facility] VITAMIN D (TOTAL) 25-HYDROXY VITAMIN D3+25-HYDR OXYVITAMIN D2 [MASS/VOLU ME] IN SERUM OR PLASMA 44.00 ng/mL 30.00 - 75.00 09/06 Specimen Type: SERUM No comment entered. Ordering Provider: JUAN MIGUEL AJ Report Released Date/Time: Aug 21, 2024 09:13 PM Reporting Lab: [place] [phone] Performing Lab: [place] [phone] [place] [address] TSH THYROTROPI N [UNITS/VOL UME] IN SERUM OR PLASMA BY DETECTION LIMIT <= 0.005 MIU/L 1.970 u[IU]/mL 0.360 - 4.500 09/06 Specimen Type: PLASMA Comment: DLDLREF RANGE: NEAR [...] Aug 21, 2024 09:13 PM Reporting Lab: [place] [phone] Performing Lab: [place] [phone] [facility] OCCULT BLOOD FIT X1 SCREEN HEMOGLOBIN .GASTROINT ESTINAL.LO WER [PRESENCE] IN STOOL BY IMMUNOASSA Y Negative 09/25 Specimen Type: FECES No comment entered. Ordering Provider: JUAN MIGUEL AJ Report Released Date/Time: Sep 11, 2023 04:08 PM Reporting Lab: [place] [phone] Performing Lab: [place] [phone] [facility] PROSTATE SPECIFIC ANTIGEN PROSTATE SPECIFIC AG [MASS/VOLU ME] IN SERUM OR PLASMA 0.69 ng/mL 0.00 - 4.00 08/30 Specimen Type: SERUM No comment entered. Ordering Provider: JUAN MIGUEL AJ Report Released Date/Time: Aug 19, 2023 08:08 AM Reporting Lab: [facility] [id number] [facility] [phone] Performing Lab: [address] [phone] [facility] Vital Signs Combined list of inpatient and outpatient Vital Signs from Department [facility] and [facility], ranging from 12 months to all on record, depending upon the facility. Vital Sign Value Date Comments Source SYSTOLIC BLOOD PRESSURE 126 09/13/2024 14:42:25 [facility] DIASTOLIC BLOOD PRESSURE 81 09/13/2024 14:42:25 [facility] PULSE OXIMETRY 97 09/13/2024 14:42:25 [facility] WEIGHT 270 09/13/2024 14:42:25 [facility] BMI 36 kg/m2 09/13/2024 14:42:25 [facility] PAIN 6 09/13/2024 14:42:25 [facility] TEMPERATURE 98.4 09/13/2024 14:42:25 [facility] PULSE 83 09/13/2024 14:42:25 [facility] RESPIRATION 20 09/13/2024 14:42:25 [facility] Encounters Combined list of: 1) Encounters from Department [facility] facilities going backup to the last 18 months, not all [place] inpatient encounters are included; 2) Encounters from the Department [facility] facilities going backup to 280 months. Location Location Details Encounter Type Encounter Number Reason For Visit Attending Provider ADM Date DC Date Status Disposition Source ASHLEY Brody([facility] OUTPATIENT [id number] inproce ssiCHRISTIN Gandara 12/02 Released w/o Limitations ASHLEY Brody[facility] OUTPATIENT [id number] 04/05 Released w/o Limitations [facility] OUTPATIENT [id number] 05/27 Released w/o Limitations Theater Facilit y [place](Optome try [facility]) OUTPATIENT [id number] srp optomet ry leno SOARES RLUIS K 07/17 Released w/o Limitations [employer](Opto metry [facility]) [facility] Hearing Conservat ion) OUTPATIENT [id number] ANTWON STARK 07/18 Released w/o Limitations [employer] Hearing Conserv ation) [place] OUTPATIENT [id number] CLS2AB JACY GATES 10/18 Released w/o Limitations [facility] [place]) [place](Hearin g Conserve) OUTPATIENT [id number] HEARING LISA DUCKWORTHER F 10/18 Released w/o Limitations [facility] [place](Hear ing Conserv e) [place] OUTPATIENT [id number] PART 2 PHYS CLS2AB( DIANA) JOVANI ORTIZ 10/26 Released w/o Limitations [facility] OUTPATIENT [id number] C/O SHOULDE R AND ANKLE PAIN (DIANA ) JOVANI ORTIZ 11/30 Released w/o Limitations [facility]) [employer]([facility] HS01 AFR Tm C) OUTPATIENT [id number] Referra l to Physica l Therapy KAYY CARTER 02/06 Released w/o Limitations [employer](A HS01 AFR Tm C) [employer](FR- Physical Therapy) OUTPATIENT [id number] Right foot, Right Shoulde r YOEL BROWN 02/15 Released w/o Limitations [employer](F R- Physica l Therapy ) [employer](FR- Physical Therapy) OUTPATIENT [id number] Tx Ankle/S ANTWON Pham 02/21 Released w/o Limitations [employer](F R- Physica l Therapy ) [employer](FR- Physical Therapy) OUTPATIENT [id number] Tx Ankle/S alina MACDONALD, ANTWON 02/22 Released w/o Limitations [employer](F R- Physica l Therapy ) [employer](FR- Physical Therapy) OUTPATIENT [id number] Tx Ankle/S alina MACDONALD, ANTWON 02/27 Released w/o Limitations [employer](F R- Physica l Therapy ) [employer](FR- Physical Therapy) OUTPATIENT [id number] Tx Ankle/S alina MACDONALD, ANTWON 03/01 Released w/o Limitations [employer](F R- Physica l Therapy ) [employer](FR- Physical Therapy) OUTPATIENT [id number] Tx shoulde r YOEL BROWN 03/06 Released w/o Limitations [employer](F R- Physica l Therapy ) [employer](Ort hopedic Clinic) OUTPATIENT [id number] shoulde r RC and labral tear. danii trujillo (pt has pod at 1020/pu ck also) VIELKA TANNER 04/27 Released w/o Limitations [employer](O rthoped ic Clinic) [employer](Pod iatry) OUTPATIENT [id number] ARTHROP ATHY ANKLE / FOOT RIGHT DOLLY BARAHONA 04/27 Released w/o Limitations [employer](P odiatry ) [facility] Outpatient Encounter [id number] 11/30 CRISTOPHER Y ANA [facility] OFFICE O/P EST LOW 20 MIN [id number] Diagnos is: ICD-10- CM J45.909 Unspeci fied asthma, uncompl icated CABANJUAN MIGUEL Bai Cate 11/30 CRISTOPHER Y [facility] OFF/OP CONSLTJ NEW/EST SF 20 [id number] Diagnos is: ICD-10- CM J45.909 Unspeci fied asthma, uncompl icated CIRO LIDIA CERDA TE S 12/01 [facility] Outpatient Encounter [id number] 12/04 [facility] Outpatient Encounter [id number] 12/26 [facility] Outpatient Encounter [id number] 03/11 [facility] Outpatient Encounter [id number] 09/11 [facility] Outpatient Encounter [id number] [facility]P EST MOD 30 MIN [id number] Diagnos is: ICD-10- CM G43.E09 Chronic migrain e with aura, not ntrct, without stat migr DE JUAN MIGUEL VELÁZQUEZ 09/13 CRISTOPHER Kuhn [facility] Outpatient Encounter [id number] 10/11 [facility] Outpatient Encounter [id number] ALTON BELLAMYMARY Esposito 02/17 [facility] Outpatient Encounter [id number] 03/06 [facility] Outpatient Encounter [id number] ALTON BELLAMYMARY Esposito 04/16 [facility] Procedures Combined list of: 1) Procedures from Department of Veterans Affairs facilities going back up to thelast 18 months, not all VA non-surgical procedures are included; 2) All procedures from the Department of Defense facilities. Procedure Procedure Type Code Date Perfomer Comments Sourgabriela e SKIN TEST; TUBERCULOSIS, INTRADERMAL 07/03/2006 DoD UNLISTED VACCINE/TOXOID 03/13/2006 DoD TYPHOID VACCINE, ACETONE-KILLED, DRIED (AKD), FOR SUBCUTANEOUS USE (U.S. ) 02/22/2006 DoD SKIN TEST; TUBERCULOSIS, INTRADERMAL 07/18/2007 [facility] AUDIOMETRIC TESTING OF GROUPS 07/18/2007 [facility] SCREENING TEST OF VISUAL ACUITY, QUANTITATIVE, BILATERAL 07/17/2007 [facility] AUDIOMETRIC TESTING OF GROUPS 10/18/2011 [facility] VIS FUNCT SCREEN,AUTOMAT/SEMI- AUTOMAT BILAT QUANT DETERM VISUAL ACUITY,OCULAR ALIGN,COLOR VISION,PSEUDOISOCHRO MAT PLATES,& FIELD VIS (MAY INC ALL/SOME SCRN DETERM FOR CONTRAST SENSITIV,VIS UND GLARE) 10/18/2011 [facility] PHYSICAL THERAPY RE-EVALUATION 03/06/2012 [facility] THERAPEUTIC PROCEDURE, 1 OR MORE AREAS, EACH 15 MINUTES; THERAPEUTIC EXERCISES TO DEVELOP STRENGTH AND ENDURANCE, RANGE OF MOTION AND FLEXIBILITY 03/01/2012 [facility] THERAPEUTIC PROCEDURE, 1 OR MORE AREAS, EACH 15 MINUTES; THERAPEUTIC EXERCISES TO DEVELOP STRENGTH AND ENDURANCE, RANGE OF MOTION AND FLEXIBILITY 02/28/2012 [facility] THERAPEUTIC PROCEDURE,1 OR MORE AREAS,EACH 15 MINUTES;NEUROMUSCULA R REEDUCATION OF MOVEMENT,BALANCE,SPACE OPERATIONS RDINATION,KINESTHETI C SENSE,POSTURE,AND/OR PROPRIOCEPTION FOR SITTING AND/OR STANDING ACTIVITIES 02/23/2012 [facility] THERAPEUTIC PROCEDURE,1 OR MORE AREAS,EACH 15 MINUTES;NEUROMUSCULA R REEDUCATION OF MOVEMENT,BALANCE,SPACE OPERATIONS RDINATION,KINESTHETI C SENSE,POSTURE,AND/OR PROPRIOCEPTION FOR SITTING AND/OR STANDING ACTIVITIES 02/22/2012 [facility] PHYSICAL THERAPY EVALUATION 02/16/2012 [facility] Physical Medicine Physical Therapy Re-Evaluation Physical Medicine Physical Therapy Re-Evaluation 87988 03/06/2012 YOEL BROWN Exercises A isted Exercises For ROM Exercises Assisted Exercises For ROM 51776 03/01/2012 ANTWON MACDONALD Physical Therapy Neuromuscular Re-education Physical Therapy Neuromuscular Re-education 40524 03/01/2012 ANTWON MACDONALD Physical Therapy Neuromuscular Re-education Physical Therapy Neuromuscular Re-education 14539 02/28/2012 ANTWON MACDONALD Exercises A isted Exercises For ROM Exercises Assisted Exercises For ROM 37938 02/28/2012 ANTWON MACDONALD Physical Therapy Neuromuscular Re-education Physical Therapy Neuromuscular Re-education 84658 02/23/2012 ANTWON MACDONALD Exercises A isted Exercises For ROM Exercises Assisted [place] ROM 39328 02/23/2012 ANTWON MACDONALD Exercises A isted Exercises For ROM Exercises [place]isted [place] 47824 02/22/2012 ANTWON MACDONALD [facility] Physical Therapy Neuromuscular Re-education Physical Therapy Neuromuscular Re-education 68645 02/22/2012 ANTWON MACDONALD [facility] Physical Medicine Physical Therapy Evaluation Physical Medicine Physical Therapy Evaluation 11492 02/16/2012 YOEL BROWN [facility] Audiometry Group Testing Audiometry Group Testing 05618 10/18/2011 V[place] DUCKWORTH [facility] Visual Function Screening Visual Function Screening 44344 10/18/2011 JACY GATES [facility] Audiometry Group Testing Audiometry Group Testing 63737 07/18/2007 ANTWON STARK [facility] Screening Test Of Visual Acuity, Quantitative, Bilateral Screening Test Of Visual Acuity, Quantitative, Bilateral 64362 07/17/2007 LUIS CERRATO [facility] Social History Combined list of available smoking, tobacco, and other social history from Department of Defense and Veterans Affairs facilities. Social History Type Response Date Comment Sourc e Tobacco smoking status NHIS VA-TOBACCO FORMER USER 09/13/2024 [facility] History of tobacco use VA-TOBACCO QUIT 1 TO < 5 YRS 09/13/2024 [facility] History of tobacco use VA-TOBACCO QUIT < 1 YEAR 09/11/2023 [facility] History of tobacco use VA-TOBACCO USER S OME DAYS 07/28/2022 [facility] History of tobacco use VA-TOBACCO DOESNT USE WI 30 MIN WAKEUP 07/02/2021 [facility] History of tobacco use VA-TOBACCO FORMER USER 01/01/2020 [facility] History of tobacco use QUIT TOBACCO IN T HE LAST 12 MONTHS 11/30/2017 [facility] History of tobacco use CURRENT TOBACCO USER 07/21/2016 [facility] History of tobacco use QUIT TOBACCO >12 MO and <7 YRS AGO 09/23/2015 [facility] History of tobacco use FORMER TOBACCO USE <1Y 09/07/2007 [facility] This section is an empty social history section. [facility] Plan of Care List of future care activities from Department of Veterans Affairs facilities. Additional future care activities may be listed in the Assessment and Plan section. Date/Time Care Activity Care Activity Detail Facili ty 04/28/2025 AMBULATORY - NONE AMBULATORY - NONE [facility]
--- OUTSIDE RECORDS SUMMARY | 2025-04-28 21:00 | XMS_ITS | Clinical Summary ---
Author Organization [facility] Address [address] [place] [address] Care Team Providers Care Interlibrary Loan Specialist Name Role Phone Eduin Green Primary Care Provider [phone] Allergies No known active allergies Medications No known medications Active Problems No known active problems Social History Tobacco Use Types Packs/Day Years Used Date Smoking Tobacco: Never Smokeless Tobacco: Never Sex and Gender Information Value Date Recorded Sex Assigned at Not on file Legal Sex Male 4:11 PM EST Gender Identity Not on file Sexual Orientation Not on file Last Filed Vital Signs Vital Sign Reading Time Taken Comments Blood Pressure 136/89 12/30/2019 9:47 AM EST Pulse 73 12/30/2019 9:47 AM EST Temperature 36.9 C (98.4 F) 12/30/2019 9:47 AM EST Respiratory Rate - - Oxygen Saturation 97% 12/30/2019 9:47 AM EST Inhaled Oxygen Concentration - - Weight 113.9 kg (251 lb) 12/30/2019 9:47 AM EST Height 185.4 cm (6' 1 ) 12/30/2019 9:47 AM EST Body Mass Index 33.12 12/30/2019 9:47 AM EST Plan of Treatment Not on file Insurance [employer] Care Teams Interlibrary Loan Specialist Relationship Specialty Start Date End Date Eduin Green DO PCP - General Internal Medicine 02/01/20
--- OUTSIDE RECORDS SUMMARY | 2025-04-28 21:01 | XMS_ITS | Clinical Summary ---
Author Organization [facility] tem Address [id number] [address] [place] [address] Care Team Providers Care Throat Cutter Name Role Phone Eduin Green DO Primary Care Provider [phone] Allergies No known active allergies Medications levothyroxine (SYNTHROID, LEVOTHROID) 50 MCG tablet Take 1 tablet (50 mcg total) by mouth in the morning. Active omega 9-hfm-tvf-fish oil (Fish OiL) 300-1,000 mg capsule Take by mouth. Active Active Problems No known active problems Encounters Date Type Department Care Team Description 03/25/2025 Telephone [facility] Pulmonary/Sleep Medicine [address] [facility] [address] [place] [phone] Kadie Boyd 03/18/2025 Telephone [facility] - Sleep Disorders [address] [place] [phone] Transcribe, Orders Support User Sleep Lab (PT Inquiry) 02/25/2025 9:43 PM EDT - 02/25/2025 11:59 PM EDT Hospital Encounter [facility] [address] [facility] [address] [place] [address] Hypothyroidism, unspecified type Discharge Disposition: Home 02/25/2025 4:15 PM EDT Office Visit [facility] Internal Medicine - Family Medicine [address] [place] [phone] Eduin Green DO Hypothyroidism, unspecified type (Primary Dx); PTSD (post-traumatic stress disorder); Elevated blood pressure reading; [place] (obstructive sleep apnea) 02/25/2025 Travel 02/17/2025 Telephone [facility] - Family Medicine [address] [place] [address] Radha Stapleton CMA from Last 3 Months Family History Medical History Relation Name Comments Colon cancer Father Breast cancer Mother Relation Name Status Comments Father Alive Mother Alive Social History Tobacco Use Types Packs/Day Years Used Date Smoking Tobacco: Never Smokeless Tobacco: Never Tobacco Cessation:Counseling Given: Not Answered Alcohol Use Standard Drinks/Week Comments Yes 2 (1 standard drink = 0.6 oz pur e alcohol) PHQ-2 Answer Date Recorded Total Score 0 02/25/2025 Childcare Answer Date Recorded Childcare Unknown 05/09/2019 Employment Answer Date Recorded Employment Unknown 05/09/2019 Hunger Screening Answer Date Recorded Within the past 12 months we worried whether our food would run out before we got money to buy more. Never True 02/25/2025 Within the past 12 months th e food we bought just didn't last and we didn't have money to get more. Never True 02/25/2025 Purpose - Life Answer Date Recorded Purpose and direction in life Unknown Sex and Gender Information Value Date Recorded Sex Assigned at Not on file Legal Sex Male 12:09 PM EDT Gender Identity Not on file Sexual Orientation Not on file Last Filed Vital Signs Vital Sign Reading Time Taken Comments Blood Pressure 134/82 02/25/2025 4:32 PM EDT Pulse 85 02/25/2025 4:32 PM EDT Temperature 36.5 C (97.7 F) 02/25/2025 4:32 PM EDT Respiratory Rate 20 02/25/2025 4:32 PM EDT Oxygen Saturation 96% 02/25/2025 4:32 PM EDT Inhaled Oxygen Concentration - - Weight 125.2 kg (276 lb) 02/25/2025 4:32 PM EDT Height 188 cm (6' 2 ) 02/25/2025 4:32 PM EDT Body Mass Index 35.44 02/25/2025 4:32 PM EDT Plan of Treatment Upcoming Encounters Date Type Department Care Team (Late st Contact Info) Description 09/01/2025 3:45 PM EDT Office Visit [facility] - Family Medicine [address] [place] [phone] Eduin Green DO [address] [facility] [place] [address] Health Maintenance Due Date Last Done Comments Adult BMI Follow Up Plan 1992 Zoster (Shingles) Vaccine (1 of 2) 2024 Influenza Vaccine 07/28/2025 08/29/2019, , 10/06/2010, Additional history exists Adult BMI Screening 02/25/2026 02/25/2025 Depression Screening 02/25/2026 02/25/2025 Tobacco Screening 02/25/2026 02/25/2025 DTaP,Tdap and Td Vaccines (2 - Tdap) 08/23/2032 08/23/2022 Medical Devices Not on file Procedures Procedure Name Priority Date/Time Associated Diagnosis Comments THYROID PROFILE INCLUDES TSH FT4 Routine 02/25/2025 5:02 PM EDT Hypothyroidism, unspecified type THYROID ANTIBODIES INCLUDES TPO AND TGAB Routine 02/25/2025 5:02 PM EDT Hypothyroidism, unspecified type from Last 3 Months Results * Thyroid antibodies includes TPO and TGAB (02/25/2025 5:02 PM EDT) Thyroperoxidase AB <1 <10 IU/mL 2024 10:50 PM EDT [facility] Thyroglobulin Ab <1 <4.0 IU/mL 02/26/20 10:50 PM EDT [facility] PLASMA 02/25/2025 5:02 PM EDT 02/25/2025 9:50 PM EDT Eduin Green DO LAB BLOOD ORDERABLES Final Resul t [facility] [address] [place] [address] * Thyroid profile includes TSH FT4 (02/25/2025 5:02 PM EDT) TSH 2.16 0.49 - 4.67 uIU/mL 02/25/2025 10:29 PM EDT [facility] T4, free 0.97 0.61 - 1.60 ng/dL 02/25/2025 10:31 PM EDT [facility] PLASMA 02/25/2025 5:02 PM EDT 02/25/2025 9:50 PM EDT Eduin Green DO LAB BLOOD ORDERABLES Final Resul t [facility] [address] [facility] [facility] [address] [place] [address] from Last 3 Months Insurance ANTH Care Teams Throat Cutter Relationship Specialty Start Date End Date Eduin Green DO [address] [place] [address] PCP - General Internal Medicine 02/19/25
--- OUTSIDE RECORDS SUMMARY | 2025-04-28 21:01 | XMS_ITS | Encounter Summary ---
Author Organization [facility] Address [id number] [address] [place] [address] Care Team Providers Care Pharmacy Picking Technician Name Role Phone Eduin Green DO Primary Care Provider [phone] Encounter Details Date Type Department Care Team (Late st Contact Info) Description 02/17/2025 Telephone [facility] - Family Medicine [address] [place] [address] Radha Stapleton CMA Social History Tobacco Use Types Packs/Day Years Used Date Smoking Tobacco: Never Assessed Childcare Answer Date Recorded Childcare Unknown 05/09/2019 Employment Answer Date Recorded Employment Unknown 05/09/2019 Purpose - Life Answer Date Recorded Purpose and direction in life Unknown Sex and Gender Information Value Date Recorded Sex Assigned at Not on file Legal Sex Male 12:09 PM EDT Gender Identity Not on file Sexual Orientation Not on file documented as of this encounter Miscellaneous Notes * Telephone Encounter - Radha Stapleton CMA - 02/17/2025 11:14 AM EDT Patent called because he seen you back before COVID . He thinks in 2019. He wanted to know if he can come back to see you. * Telephone Encounter - Eduin Green DO - 02/17/2025 11:14 AM EDT Message noted. Fine with me. [facility]. He would be a new patient documented in this encounter Plan of Treatment Upcoming Encounters Date Type Department Care Team (Late st Contact Info) Description 09/01/2025 3:45 PM EDT Office Visit [facility] - Family Medicine [address] [place] [address] Eduin Green DO [address] [place] [address] documented as of this encounter Visit Diagnoses Not on filedocumented in this encounter Care Teams Pharmacy Picking Technician Relationship Specialty Start Date End Date Eduin Green DO [address] [place] [address] PCP - General Internal Medicine 02/19/25 documented as of this encounter
--- OUTSIDE RECORDS SUMMARY | 2025-04-28 21:01 | XMS_ITS | Encounter Summary ---
Author Organization [facility] Address [id number] [address] [place] [address] Care Team Providers Care Pit Manager Name Role Phone Eduin Green DO Primary Care Provider [phone] Encounter Details Date Type Department Care Team (Late st Contact Info) Description 12/15/2023 Orders Only [facility] [address] [place] [phone] External, Scanning Provider Social History Tobacco Use Types Packs/Day Years [...] on file documented as of this encounter Plan of Treatment Upcoming Encounters Date Type Department Care Team (Late st Contact Info) Description 09/01/2025 3:45 PM EDT Office Visit [facility] - Family Medicine [address] [place] [address] Eduin Green DO [address] [place] [address] documented as of this encounter Procedures Procedure Name Priority Date/Time Associated Diagnosis Comments ECG 12-LEAD Routine 11/30/2023 3:41 PM EST documented in this encounter Results * ECG 12 lead (11/30/2023 3:41 PM EST) us Scanning Provider External ECG ORDERABLES Final Result MANUALLY TRANSCRIBED RESULTS documented in this encounter Visit Diagnoses Not on filedocumented in this encounter Care Teams Pit Manager Relationship Specialty Start Date End Date Eduin Green DO [address] [place] [address] PCP - General Internal Medicine 02/19/25 documented as of this encounter
== END 2025-04-28 20:59 | disposition home or self-care (01) ==
LOC: SLEEP 20:58
PROVIDERS: PCP Family Medicine; Visit Provider Family Medicine
DX: G47.33 Obstructive sleep apnea (adult) (pediatric) (principal)
CPT/HCPCS: 95811